=== PATIENT | male | born 1960 | race Caucasian/White ===

== ENCOUNTER 2025-08-10 11:08 | Day surgery (SDC) | payer MEDICAID ==
--- NOTE | 2025-08-03 12:01 | ELECTROCARDIOGRAPH REPORT ---
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 ALE Moreira Measurements Intervals [place] Rate: 52 P: 22 PA: 187 QRS: 61 QRSD: 77 T: 44 QT: 409 QTc: 381 Interpretive Statements Sinus bradycardia Abnormal R-wave progression, early transition Minimal ST elevation, inferior leads Electronically Signed On 08-03-2025 16:51:[address] ALE Moreiar Please click the below link to view image of tracing.
[2025-08-03 12:09] LABS: MEAN PLATELET VOLUME 9.5 FL (7.4-10.4); PRE OP HEMATOCRIT 42.3 % (42.0-52.0); PRE OP HEMOGLOBIN 14.2 g/dL (14.0-17.9); PRE OP PLATELET COUNT 183 X10'3 (140-440); PRE OP WHITE BLOOD COUNT 5.6 10'3 (4.8-10.8); RED CELL DISTRIBUTION WIDTH 13.9 % (11.5-14.5)
[2025-08-03 12:20] LABS: CREATININE 0.92 MG/DL (0.60-1.10); PRE OP ALT 25 U/L (30-65); PRE OP ANION GAP 4 (8-16); PRE OP AST 31 U/L (10-37); PRE OP BILIRUB, TOTAL 1.0 MG/DL (0.0-1.0); PRE OP GLUCOSE 89 MG/DL (70-104); PRE OP POTASSIUM 4.0 MMOL/L (3.4-5.1); PRE OP SODIUM 138 MMOL/L (135-145); TOTAL CARBON DIOXIDE 29.9 MMOL/L (24-32); eGFR 83 ML/MIN
[~2025-08-10] VITALS: Ht 177.8 cm; Wt 94.4 kg
[2025-08-10] VITALS (15 sets, daily range): BP systolic 93–151; BP diastolic 54–102; PULSE 43–69; RESP 10–17; TEMP 98.2; O2SAT 94–99
[2025-08-10] MEDS: ceFAZolin 2gm/dext,iso 50mL 50 ML IV ONE (05:30)
[~2025-08-10 11:08] MED LIST: ASCO-139 PO; ASPI-529 PO; BUPIVAcaine/PF 2.5mg/ml (0.25%) 10ml vial ONE; FERR325T28 PO; HYDR25TA5 PO; LIDOcaine 1% 30ml preserv. free vial ONE; LISI20TA28 PO; MULT-1085 PO; OMEG-165 PO; TAMS-55 PO
[2025-08-10] MEDS: ringers solution, lacted 1,000 ML IV SCH (11:50)
[2025-08-10] MEDS ORDERED: dexamethasone sod phosphate 4mg/ml inj. ONE (13:00)
[2025-08-10] MEDS ORDERED: rocuronium 10mg/ml inj IV ONE (13:00)
[2025-08-10] MEDS ORDERED: desflurane 240ml liquid inh. IH ONE (13:00)
[2025-08-10] MEDS ORDERED: fentaNYL/PF 50MCG/1 ML 2ML syringe ONE (13:07)
[2025-08-10] MEDS ORDERED: midazolam 1 mg/ML 2ml injection ONE (13:08)
[2025-08-10] MEDS ORDERED: LIDOcaine 1%/PF 5ML 10 MG/ML VIAL ONE (13:08)
[2025-08-10] MEDS ORDERED: glycopyrrolate 0.2mg/ml inj ONE (13:09)
[2025-08-10] MEDS ORDERED: ondansetron/PF 4mg/2ml inj ONE (13:09)
[2025-08-10] MEDS ORDERED: propofol inj 20 ML IV ONE (13:09)
[2025-08-10] MEDS ORDERED: fentaNYL/PF 50MCG/1 ML 2ML syringe IV PRN ×2 (13:40)
[2025-08-10] MEDS ORDERED: hydrALAZINE 20mg/ml inj. IV PRN (13:40)
[2025-08-10] MEDS ORDERED: ringers solution, lacted 1,000 ML IV SCH (13:40)
[2025-08-10] MEDS ORDERED: ondansetron/PF 4mg/2ml inj IV PRN (13:40)
[2025-08-10] MEDS ORDERED: labetalol 20mg/4ml (5mg/ml) syringe IV PRN (13:40)
[2025-08-10] MEDS: BUPIVAcaine/PF 2.5mg/ml (0.25%) 10ml vial IJ ONE (13:46)
[2025-08-10] MEDS: LIDOcaine 1% 30ml preserv. free vial IJ ONE (13:46)
[2025-08-10] MEDS: morphine 4 MG/ML inj SYRINge IV PRN (15:03)
--- NOTE | 2025-08-10 15:29 | OPERATIVE REPORT ---
Operative Report Providers to CC CC: NIMESH RUBY MD ~ Date of Procedure: Aug 10, 2025 Pre-Operative Diagnosis: Right inguinal hernia Post-Operative Diagnosis SAME as PRE-Op Procedure Performed Robotic assisted, laparoscopic incarcerated, right inguinal hernia repair with mesh Surgeon: Nimesh Ruby MD FACS Video Engineer None Anesthesiologist: Mikal Blankenship Type of Anesthesia: General Findings: Giant right-sided inguinal-scrotal hernia with incarcerated cecum Complications None Prosthetics\Implants used: Extra-large right Dextile mesh Estimated Blood Loss: 20 cc Specimen Removed: None Description of Procedure: Patient was brought to the operating room and identified by the nursing staff and the attending physician. Patient was placed supine and general anesthesia was induced. Patient's abdomen was prepped and draped in standard sterile fashion. Preoperative antibiotics were given. Supraumbilical incision was made to allow for standard Hraris entry technique. Laparoscope was inserted after insufflation. Bilateral, 8.5 mm robotic trochars were placed under laparoscopic guidance following administration of local anesthetic. The da Bj robotic arm was docked to the patient and instruments placed intra-abdominally under laparoscopic visualization. The left hemipelvis was examined and a very small indirect inguinal hernia was noted. On the right, there was a giant right inguinal hernia with herniated terminal ileum and cecum. With the external compression, I was able to reduce the majority of this, however, the cecum remained incarcerated. Preperitoneal flap was created and carried down to the symphysis pubis. The retropubic space of Retzius was developed and the bladder swept medially. Dissection was carried out laterally until a right-sided indirect hernia sac was identified. This was giant in size. Hernia sac was completely mobilized and reduced. Peritoneum was completely dissected away from the cord structures. While doing this, some arterial bleeding occurred and me a few minutes to control this. By the time it was controlled, about a 20 cc blood loss had a crude. This was suctioned using a suction funding analyst. The critical view of the myopectineal orifice was achieved. Dissection was carried out laterally to allow space for mesh deployment. An extra-large right-sided Dextile mesh and suture was passed intra-abdominally. Mesh was laid in the preperitoneal space covering both indirect, direct, and potential femoral and obturator hernias. Mesh laid without wrinkles or folds. 3 tacking sutures using 0 Ethibond were used to fix the mesh at the symphysis pubis, rectus abdominis, and just anterior to the anterior superior iliac spine. The peritoneal rent was then closed with running, 2/0, absorbable locking suture. [place] were retrieved. Abdomen was deflated and secondary trochars removed. Fascia at the umbilical port site was closed with 0 Vicryl sutures. Skin incisions were closed with 4-0 Monocryl sutures in a subcuticular fashion. Sterile dressings were applied. Patient was awakened and taken to the postanesthesia care unit in stable condition. Counts repoted as correct: Yes NIMESH RUBY MD Aug 10, 2025 15:29
[2025-08-10] MEDS: HYDROcodone/acetaminophen 5mg/325mg tablet PO PRN (17:05)
== END 2025-08-10 17:10 | disposition home or self-care (01) ==
LOC: PAS 11:08
PROVIDERS: ATTEND Surgery
DX: K40.30 Unilateral inguinal hernia, with obstruction, without gangrene, not specified as recurrent (principal); R94.31 Abnormal electrocardiogram [ECG] [EKG]; F17.210 Nicotine dependence, cigarettes, uncomplicated; I10 Essential (primary) hypertension; Z98.84 Bariatric surgery status; Z96.641 Presence of right artificial hip joint; E66.9 Obesity, unspecified; N40.0 Benign prostatic hyperplasia without lower urinary tract symptoms; Z83.3 Family history of diabetes mellitus; Z82.61 Family history of arthritis; Z82.3 Family history of stroke; Z82.49 Family history of ischemic heart disease and other diseases of the circulatory system; Z84.19 Family history of other disorders of kidney and ureter; Z80.9 Family history of malignant neoplasm, unspecified
CPT/HCPCS: 36415; 49650; 80053; 82948; 85025; 93005; C1781; J1100; J2003; J2250; J2270; J2405; J2704; J2710; J3010; J3490; J7030; J7120; S2900; Z7506; Z7508; Z7512; A4215; A4618; A5200